=== PATIENT | male | born 1975 | race Caucasian/White ===

== ENCOUNTER 2023-09-29 10:17 | Outpatient (AMB) | payer BC, SELFPAY ==
--- NOTE | 2023-09-29 10:32 | HO.SPINEOV ---
Intake Intake Visit Reasons: Low back pain Intake Note: Mr. Flores is here today c/o low back pain radiating into leg. MRI done @ [place]/brought disc. Tanning Wheel Filler Required: No Allergies No Known Allergies Allergy (Verified 09/29/23 10:34) Assessment & Plan Assessment & Plan (1) Lumbar disc herniation: Code(s): M51.26 - Other intervertebral disc displacement, lumbar region Plan This is a very nice 48-year-old gentleman who has seen Dr. Grossman in the past for his lumbar spine at [facility] about 10 years ago, who now presents with lumbar radiculopathy in his left leg. He has a history of herniated discs in his L4-5 and L5-S1 on and off for least 10 years. Sometime around February of this year he noticed abrupt onset of pain down his right leg, that ultimately shifted over to his left leg. It goes down into his buttock, will travel down into his anterior tibial region toward the top of his foot but does not go into his foot. He is noticed some dorsiflexion weakness intermittently as well. He does not report any back pain. He has been going through physical therapy, chiropractic. He recently underwent a cortisone injection at [facility]. He has not sure if that is done anything. He takes Tylenol and Advil every day. He comes today to see us with an MRI showing a large herniated disc at L4-5 and L5-S1. 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 At L4-5 there is a central herniated disc with a free-floating fragment behind the vertebral body of L5 causing moderate to severe central canal stenosis. There is a right L5-S1 herniated disc causing significant compression of the right S1 nerve root. Unfortunately I was unable to look at his old imaging in our system, but it appears as though he has had on and off herniated discs at L4-5 since at least 2010. It appears that the herniated disc on the right at L5-S1 has been there since at least 2013. Impression: 48-year-old gentleman with a history of herniated discs in his back on and off for the last 10 years or more, presents now with a left L5 radiculopathy with mild dorsiflexion weakness secondary to what looks like a large herniated disc fragment with a free-floating component behind the body of L5. He does not report any back pain, it is strictly left leg pain. He is currently in the middle of trialing conservative treatment. Unfortunately I was unable to see the old imaging from 2013 in 2010, but it sounds like the herniated disc on the right at L5-S1 is a chronic finding, but the L4-5 will intermittently pop out and then reabsorbed itself. I think the L4-5 fragment would be a good surgical target. At this time he is considering the idea of surgery but would like to think about it a little more. Typically this is something Dr. Grossman would offer him microdiskectomy L4-5. We reviewed the pertinent risks and benefits, as well as expected outcome and recovery. I quoted success rate at 90%. He understands if the foot weakness starts to get worse he should call me back and we can expedite surgery. Currently it feels like it is slightly better than it was week or so ago. Thank you for allowing us to care for your patient. The total time spent with this visit with this patient was 45 minutes reviewing history, physical exam, lumbar imaging review, and implementation of treatment plan or further diagnostic testing Norm Grossman MD,PhD [facility] Coding Level of Care Code New Pt Level 4 (05021) Diagnoses Lumbar disc herniation M51.26
== END 2023-09-29 11:06 | disposition home or self-care (01) ==
PROVIDERS: Visit Provider Physician Assistant
DX: M51.26 Other intervertebral disc displacement, lumbar region (principal)
CPT/HCPCS: 99204

== ENCOUNTER → 2023-09-29 10:17 | Outpatient (BNVA) | payer BC, SELFPAY | PROVIDERS: Visit Provider Physician Assistant ==